=== PATIENT | female | born 1955 | race Caucasian/White ===

== ENCOUNTER 2018-08-12 14:32 | Emergency (ER) | payer MEDICAID ==
[~2018-08-12] VITALS: Ht 160 cm; Wt 52.2 kg
[2018-08-12] MEDS ORDERED: IBUPROFEN 200200 M1 PO (14:49)
[2018-08-12] MEDS ORDERED: NEURONTIN 400400 M1 PO (14:49)
[2018-08-12] MEDS ORDERED: AMARYL2 MG PO (14:49)
[2018-08-12] MEDS ORDERED: LISINOPRIL10 MG PO (14:49)
[2018-08-12] MEDS ORDERED: TRIAMCINOLONE A80 G2 TOP (14:50)
[2018-08-12] MEDS ORDERED: MEDROLDOSEPACK PO ×3 (15:07→16:02)
[2018-08-12] MEDS ORDERED: CYCLOBENZAPRINE5 MG PO ×3 (15:07→16:02)
[2018-08-12 16:17] VITALS: BP 124/78
--- NOTE | 2018-08-13 10:37 | EKG ---
[place] [address] ELECTROCARDIOGRAM REPORT Name: SID LEVY Room: [facility]#: [id number] Admission: 08/12/18 Attend Phys: Discharge: 08/12/18 Date of : 51 Report #: [id number] THIS REPORT FOR: //name// [facility] ED Test Date: 2018-08-12 Test Time: 15:01:54 Pat Name: SID LEVY Department: Room: Gender: F Steel Welder: Pio Luis : 1955 Requested By: Jose Luis Squires Order Number: [id number] MD: Sukhjinder Renae Measurements Intervals [place] Rate: 45 P: -36 [place]: 199 QRS: -34 QRSD: 117 T: 175 QT: 498 QTc: 431 Interpretive Statements Ectopic atrial bradycardia Atrial premature complex LVH with secondary repolarization abnormality No previous ECG available for comparison Electronically Signed On 08-13-2018 10:36:47 CDT by Sukhjinder Renae [email or web address] <ELECTRONICALLY SIGNED> By: Sukhjinder Renae MD, [facility] 08/13/18 1036 1501 1501 Sukhjinder Renae MD, FACC /EPI
== END 2018-08-12 16:18 | disposition home or self-care (01) ==
LOC: M.ERS 14:32
DX: M54.2 Cervicalgia (principal); M25.512 Pain in left shoulder; Z59.0 Homelessness; I10 Essential (primary) hypertension; E78.00 Pure hypercholesterolemia, unspecified; E11.9 Type 2 diabetes mellitus without complications

== ENCOUNTER 2019-03-22 18:09 | Emergency (ER) | payer OTHER, MEDICAID ==
[~2019-03-22] VITALS: Ht 160 cm; Wt 51.7 kg
[~2019-03-22 18:09] MED LIST: AMARYL2 MG PO; CYCLOBENZAPRINE5 MG PO; IBUPROFEN 200200 M1 PO; LISINOPRIL10 MG PO; MEDROLDOSEPACK PO; NEURONTIN 400400 M1 PO; TRIAMCINOLONE A80 G2 TOP
[2019-03-22 18:21] VITALS: BP 145/90
[2019-03-22] MEDS ORDERED: AUGMENTIN 875-1 EACH PO (19:13)
[2019-03-22] MEDS ORDERED: ELIMITE60 GM TOP (19:13)
[2019-03-22 19:18] LABS: ABSOLUTE EOSINOPHILS 0.1 thou/uL (0.0-0.7); ABSOLUTE LYMPHOCYTES 1.7 thou/uL (0.8-5.3); ABSOLUTE MONOCYTES 0.8 thou/uL (0.0-1.2); ABSOLUTE NEUTROPHILS 6.5 thou/uL (1.6-8.1); BASOPHILS 0.2 %; EOSINOPHILS 0.9 %; HEMOGLOBIN 13.5 gm/dL (12.0-15.0); LYMPHOCYTES 18.8 %; MCH 32.1 pg (26.0-34.0); MCHC 33.9 g/dL (28.0-37.0); MCV 94.8 fL (80.0-100.0); MONOCYTES 8.7 %; MPV 8.4 fl. (7.2-11.1); NUCLEATED RBCS 0 /100WBC; PLATELET COUNT* 234 thou/uL (150-400); POLYS 71.4 %; RBC 4.22 mil/uL (4.20-5.00); WBC 9.2 thou/uL (4.0-11.0)
[2019-03-22 19:27] LABS: CALCIUM 9.1 mg/dL (8.5-10.1); CREATININE 1.6 mg/dL (0.6-1.3)
[2019-03-22 19:32] LABS: ALBUMIN 3.3 g/dL (3.4-5.0); TOTAL BILIRUBIN 0.3 mg/dL (<0.1-1.0)
== END 2019-03-22 19:45 | disposition left against medical advice (07) ==
LOC: M.ERS 18:09
PROVIDERS: Personal Emergency Response Attendant
DX: L03.011 Cellulitis of right finger (principal); I10 Essential (primary) hypertension; E78.00 Pure hypercholesterolemia, unspecified; E11.9 Type 2 diabetes mellitus without complications